=== PATIENT | female | born 1955 | race Caucasian/White ===

== ENCOUNTER 2017-05-29 14:25 | Outpatient (CLI) | payer MEDICAID ==
[2017-05-29 14:59] LABS: BASOPHILS # (AUTO) 0.1 10^3/uL (0.0-0.1); BASOPHILS % (AUTO) 0.8 %; EOSINOPHILS # (AUTO) 0.2 10^3/uL (0.0-0.7); EOSINOPHILS % (AUTO) 1.9 %; LYMPHOCYTES # (AUTO) 2.6 10^3/uL (1.5-3.5); LYMPHOCYTES % (AUTO) 32.6 %; MEAN CORPUSCULAR HEMOGLOBIN 28.4 pg (27.0-31.0); MEAN CORPUSCULAR HGB CONC 33.3 g/dL (32.0-36.0); MEAN CORPUSCULAR VOLUME 85.1 fL (81.0-99.0); MEAN PLATELET VOLUME 9.5 fL (7.9-10.8); MONOCYTES # (AUTO) 0.5 10^3/uL (0.0-1.0); NEUTROPHILS # (AUTO) 4.7 10^3/uL (1.5-6.6); NEUTROPHILS % (AUTO) 58.7 %; RED BLOOD COUNT 4.58 10^6/uL (4.20-5.40); RED CELL DISTRIBUTION WIDTH 13.8 % (12.0-15.0); UNCORRECTED WHITE BLOOD COUNT 8.1 x10^3/uL; WHITE BLOOD COUNT 8.1 x10^3/uL (4.8-10.8)
[2017-05-29 15:15] LABS: ALBUMIN/GLOBULIN RATIO 1.1 (1.0-2.2); BILIRUBIN,TOTAL 0.7 mg/dL (0.2-1.0); BUN - BLOOD UREA NITROGEN 17 mg/dL (6-20); CALCIUM 9.1 mg/dL (8.5-10.3); CARBON DIOXIDE - CO2 24 mmol/L (21-32); CHLORIDE 103 mmol/L (101-111); CHOL/HDL RATIO 3.4 (<4.4); CHOLESTEROL 181 mg/dL; CREATININE 0.8 mg/dL (0.4-1.0); GFR - MDRD 73 (>89); GLUCOSE 104 mg/dL (70-100); HDL CHOLESTEROL 53 mg/dL; LDL/HDL RATIO 1.9 (<4.4); POTASSIUM 3.5 mmol/L (3.5-5.0); SODIUM 137 mmol/L (135-145); TOTAL PROTEIN 7.4 g/dL (6.7-8.2); TRIGLYCERIDES 146 mg/dL; VLDL CHOLESTEROL 29 mg/dL
[2017-05-29 16:19] LABS: THYROID STIMULATING HORMONE 0.2 uIU/mL (0.34-5.60)
[2017-05-31 13:02] LABS: ANA SCREEN NEGATIVE (NEGATIVE)
== END 2017-05-29 14:26 | disposition home or self-care (01) ==
LOC: LAB 14:25
PROVIDERS: ATTEND Nurse Practitioner Family
DX: I10 Essential (primary) hypertension (principal); M06.9 Rheumatoid arthritis, unspecified; L40.50 Arthropathic psoriasis, unspecified
CPT/HCPCS: 36415; 80050; 80061; 84439; 85651; 86038; 86140; 86200; 86430

== ENCOUNTER 2017-06-18 16:16 | Outpatient (CLI) | payer MEDICAID ==
[2017-06-18 17:26] LABS: BASOPHILS # (AUTO) 0.1 10^3/uL (0.0-0.1); BASOPHILS % (AUTO) 0.9 %; EOSINOPHILS # (AUTO) 0.1 10^3/uL (0.0-0.7); EOSINOPHILS % (AUTO) 1.1 %; HCT - HEMATOCRIT 39.1 % (37.0-47.0); LYMPHOCYTES # (AUTO) 2.6 10^3/uL (1.5-3.5); LYMPHOCYTES % (AUTO) 25.7 %; MEAN CORPUSCULAR HEMOGLOBIN 28.4 pg (27.0-31.0); MEAN CORPUSCULAR HGB CONC 33.1 g/dL (32.0-36.0); MEAN CORPUSCULAR VOLUME 85.8 fL (81.0-99.0); MEAN PLATELET VOLUME 9.5 fL (7.9-10.8); MONOCYTES # (AUTO) 0.8 10^3/uL (0.0-1.0); MONOCYTES % (AUTO) 7.9 %; NEUTROPHILS # (AUTO) 6.5 10^3/uL (1.5-6.6); NEUTROPHILS % (AUTO) 64.4 %; RED BLOOD COUNT 4.56 10^6/uL (4.20-5.40); UNCORRECTED WHITE BLOOD COUNT 10.1 x10^3/uL; WHITE BLOOD COUNT 10.1 x10^3/uL (4.8-10.8)
[2017-06-18 17:33] LABS: ALBUMIN/GLOBULIN RATIO 1.1 (1.0-2.2); BILIRUBIN,TOTAL 0.7 mg/dL (0.2-1.0); CREATININE 1.2 mg/dL (0.4-1.0); POTASSIUM 3.7 mmol/L (3.5-5.0); TOTAL PROTEIN 7.4 g/dL (6.7-8.2)
[2017-06-18 17:59] LABS: BILIRUBIN,URINE NEGATIVE (NEGATIVE)
[2017-06-18 18:16] LABS: UR CULTURE IF IND NOT INDICATED; WBC,URINE 0-3 /HPF (0-5)
--- NOTE | 2017-06-19 09:55 | XRAY Report ---
TWO VIEW ABDOMEN: 06/18/2017 CLINICAL INDICATION: Acute abdominal pain. FINDINGS: Supine and upright views of the abdomen demonstrate no evidence of bowel obstruction. The bowel gas pattern is normal. No free intraperitoneal gas is seen. No definite abnormal calcifications are appreciated overlying either renal shadow. IMPRESSION: NO EVIDENCE OF BOWEL OBSTRUCTION OR PERFORATION. JOB #: [id number] EXT JOB #:[id number]
== END 2017-06-18 16:17 | disposition home or self-care (01) ==
LOC: DI 16:16
PROVIDERS: ATTEND Nurse Practitioner Family
DX: R10.9 Unspecified abdominal pain (principal)
CPT/HCPCS: 36415; 74020; 80053; 81001; 85025; 87086

== ENCOUNTER 2017-06-27 08:16 | Outpatient (CLI) | payer MEDICAID ==
[2017-06-27] MEDS ORDERED: IOPAMIDOL-300 100 ML VIAL IVP ONE (09:31)
--- NOTE | 2017-06-27 13:07 | CT Report ---
CT ABDOMEN AND PELVIS WITH CONTRAST: 06/27/2017 CLINICAL INDICATION: Abdominal pain. TECHNIQUE: Axial CT images of the abdomen and pelvis were obtained with 50 mL Isovue-300 intravenous ly as well as oral contrast. In accordance with CT protocol optimization, one or more of the following dose reduction techniques w ere utilized for this exam: automated exposure control, adjustment of mA and/or KV based on patient size, or use of iterative reconstructive technique. FINDINGS: Limited evaluation of the lung bases is unremarkable. Abdomen: There is fatty infiltration of the liver. The spleen, pancreas, kidneys, and adrenal gland s appear unremarkable. The gallbladder is not dilated. No bowel dilatation, free gas, or free fluid is present. No abdominal adenopathy is seen. Pelvis: The appendix is seen in the right lower quadrant, and is normal in caliber. Sigmoid diverti culosis is present, without CT evidence of diverticulitis. No pelvic adenopathy or free fluid is pre sent. Osseous structures demonstrate degenerative changes. IMPRESSION: FATTY INFILTRATION OF THE LIVER. NO EVIDENT ETIOLOGY FOR PATIENT'S PAIN. JOB #: [id number] EXT JOB #:[id number]
== END 2017-06-27 08:17 | disposition home or self-care (01) ==
LOC: DI 08:16
PROVIDERS: ATTEND Nurse Practitioner Family
DX: R10.9 Unspecified abdominal pain (principal); K76.0 Fatty (change of) liver, not elsewhere classified
CPT/HCPCS: 74177; Q9967

== ENCOUNTER 2017-10-16 12:08 | Outpatient (CLI) | payer MEDICAID ==
--- NOTE | 2017-10-16 13:07 | XRAY Report ---
FOUR VIEW RIGHT KNEE: 10/16/2017 CLINICAL INDICATION: Acute pain. FINDINGS: AP, lateral, bilateral oblique views of the right knee demonstrate mild osteoarthritis, wi th small marginal osteophytes. A large effusion is present. There is no evidence of fracture. No fore ign body is seen in the soft tissues. IMPRESSION: MILD OSTEOARTHRITIS. LARGE KNEE JOINT EFFUSION. JOB #: [id number] EXT JOB #:[id number]
== END 2017-10-16 12:09 | disposition home or self-care (01) ==
LOC: DI 12:08
PROVIDERS: ATTEND Nurse Practitioner Family
DX: M17.11 Unilateral primary osteoarthritis, right knee (principal); M25.461 Effusion, right knee

== ENCOUNTER 2017-10-29 12:31 | Outpatient (CLI) | payer MEDICAID ==
--- NOTE | 2017-10-29 15:13 | MRI Report ---
EXAM: RIGHT KNEE MRI WITHOUT CONTRAST EXAM DATE: 10/29/2017 01:12 PM. CLINICAL HISTORY: Right knee pain after a fall. COMPARISON: Right knee radiography from 10/16/2017. TECHNIQUE: Multiplanar, multisequence T1-weighted and fluid-sensitive sequences of the knee without c ontrast. Other: None. FINDINGS: Bones and articular cartilage: Small marginal osteophytes at the femoral condyles and tibial plateau. Small focus of mild subchondral marrow edema posterior aspect of the medial femoral condyle. Small s ubcortical cyst and focal grade 3-4 chondromalacia at the medial trochlear facet. Focal grade 3-4 cho ndromalacia at the femoral trochlear groove. Grade 3-4 chondromalacia at the median ridge and medial facet of the patella. Grade 2 chondromalacia and small subcortical cysts at the lateral patellar face t. No subluxations. Medial Meniscus: Radial oblique tear and flap tear with horizontal component at the posterior horn. Lateral Meniscus: The lateral meniscus is intact. Cruciate Ligaments: The anterior and posterior cruciate ligaments are intact. Collateral Ligaments: Grade 1 sprain of the medial collateral ligament complex. Lateral collateral li gament complex structures are unremarkable. Tendons: The quadriceps, patellar, semimembranosus, and popliteus tendons are unremarkable. Musculature: No edema or fatty atrophy. Other: Moderate size joint effusion. No popliteal cyst. No loose bodies. The medial and lateral reti nacula are intact. The subcutaneous tissues and fat pads are unremarkable. IMPRESSION: 1. Patellofemoral compartment osteoarthritis. 2. Radial oblique tear and flap tear with horizontal component at the posterior horn medial meniscus. 3. Grade 1 sprain of the medial collateral ligament complex. 4. Moderate-sized joint effusion. [facility] MUSCULOSKELETAL RADIOLOGY SECTION Referring Provider Line: [phone] SITE ID: [id number]
--- NOTE | 2017-10-29 18:19 | CT Report ---
EXAM: LEFT SHOULDER CT WITHOUT CONTRAST EXAM DATE: 10/29/2017 01:41 PM. CLINICAL HISTORY: Left clavicular pain. COMPARISON: None. TECHNIQUE: Thin-section axial images were acquired of the shoulder without contrast. Post-processing: Oblique coronal and sagittal reformats. Other: None. In accordance with CT protocol optimization, one or more of the following dose reduction techniques w ere utilized for this exam: automated exposure control, adjustment of mA and/or KV based on patient s ize, or use of iterative reconstructive technique. FINDINGS: Bones: No fracture or bone lesion. Acromioclavicular Region: The patient has a type II acromion. The acromioclavicular joint is normal. Tiny subcortical cysts and mild sclerosis at the left side of the sternal manubrium, adjacent to the left sternoclavicular joint. The medial end of the clavicle is unremarkable. Glenohumeral Joint: Normal. No large effusion. No calcified loose bodies. Musculature: Normal. No fatty atrophy. Other: The visualized lungs are unremarkable. No lymphadenopathy in the visualized axilla. IMPRESSION: 1. Tiny subcortical cysts and mild sclerosis at the left side of the sternal manubrium, adjacent to t he left sternoclavicular joint which may be degenerative in etiology. 2. Otherwise, unremarkable CT of the left shoulder and left clavicle. [facility] MUSCULOSKELETAL RADIOLOGY SECTION Referring Provider Line: [phone] SITE ID: [id number]
== END 2017-10-29 12:32 | disposition home or self-care (01) ==
LOC: DI 12:31
PROVIDERS: ATTEND Orthopaedic Surgery
DX: M85.68 Other cyst of bone, other site (principal); S83.241A Other tear of medial meniscus, current injury, right knee, initial encounter; M17.11 Unilateral primary osteoarthritis, right knee; S83.411A Sprain of medial collateral ligament of right knee, initial encounter; M25.461 Effusion, right knee

== ENCOUNTER 2017-11-15 10:50 | Outpatient (CLI) | payer OTHER, MEDICAID | END 2017-11-15 10:51 | disposition EMS.NT | LOC: EMS 10:50 | PROVIDERS: ATTEND Surgery | DX: Z04.1 Encounter for examination and observation following transport accident (principal); V49.69XA Unspecified car occupant injured in collision with other motor vehicles in traffic accident, initial encounter; Y92.481 Parking lot as the place of occurrence of the external cause ==

== ENCOUNTER 2017-12-10 14:54 | Outpatient (CLI) | payer MEDICAID ==
[2017-12-10 15:32] LABS: CALCIUM 9.2 mg/dL (8.5-10.3); CREATININE 1.1 mg/dL (0.4-1.0)
[2017-12-10 17:05] LABS: THYROID STIMULATING HORMONE 32.07 uIU/mL (0.34-5.60)
[2017-12-10 17:07] LABS: FREE T4 (FREE THYROXINE) 0.61 ng/dL (0.58-1.64)
== END 2017-12-10 14:55 | disposition home or self-care (01) ==
LOC: LAB 14:54
PROVIDERS: ATTEND Nurse Practitioner Family
DX: Z00.01 Encounter for general adult medical examination with abnormal findings (principal); K57.30 Diverticulosis of large intestine without perforation or abscess without bleeding; E06.3 Autoimmune thyroiditis
CPT/HCPCS: 36415; 80048; 84439; 84443

== ENCOUNTER 2017-12-13 13:28 | Outpatient (CLI) | payer MEDICAID ==
[~2017-12-13 13:28] MED LIST: GADOBUTROL 10 MMOL/10 ML VIAL ONE
== END 2017-12-13 13:29 | disposition home or self-care (01) ==
LOC: LAB 13:28
PROVIDERS: ATTEND Orthopaedic Surgery
DX: M89.8X8 Other specified disorders of bone, other site (principal)

== ENCOUNTER 2018-02-26 21:58 | Outpatient (CLI) | payer MEDICAID ==
--- NOTE | 2018-02-28 12:22 | Ultrasound Preliminary Report ---
Exam: US CHEST IMPRESSION: Palpable region 2 x 3.8 x 3.2 cm density suggestive of lipoma [facility] The call report notification system was initiated by Dr. Della Reis at 11:46 hrs on 02/28/18. SITE ID: [id number]
--- NOTE | 2018-02-28 12:22 | Ultrasound Report ---
EXAM: CHEST ULTRASOUND EXAM DATE: 02/26/2018 10:52 PM. CLINICAL HISTORY: L SUPRACLAVICAL MASS, LIPOMA ON MR. COMPARISON: None. TECHNIQUE: Real time scanning with review of static images. Color imaging. FINDINGS: Palpable region is a supraclavicular 2 x 3.8 x 3.2 cm isoechoic ovoid density IMPRESSION: Palpable region 2 x 3.8 x 3.2 cm density suggestive of lipoma [facility] The call report notification system was initiated by Dr. Della Reis at 11:46 hrs on 02/28/18. Referring Provider Line: [phone] SITE ID: [id number]
== END 2018-02-26 21:59 | disposition home or self-care (01) ==
LOC: DI 21:58
PROVIDERS: ATTEND Orthopaedic Surgery
DX: D17.1 Benign lipomatous neoplasm of skin and subcutaneous tissue of trunk (principal)
CPT/HCPCS: 76604

== ENCOUNTER 2018-03-18 18:40 | Outpatient (CLI) | payer MEDICAID ==
[2018-03-18 19:41] LABS: CALCIUM 9.2 mg/dL (8.5-10.3)
[2018-03-18 21:10] LABS: THYROID STIMULATING HORMONE 85.64 uIU/mL (0.34-5.60)
[2018-03-19 12:20] LABS: FREE T4 (FREE THYROXINE) 0.54 ng/dL (0.58-1.64)
== END 2018-03-18 18:41 | disposition home or self-care (01) ==
LOC: LAB 18:40
PROVIDERS: ATTEND Nurse Practitioner Family
DX: E83.52 Hypercalcemia (principal)
CPT/HCPCS: 36415; 80069; 82310; 83970; 84436; 84439; 84443